=== PATIENT | male | born 1980 | race Caucasian/White ===

== ENCOUNTER 2018-01-22 07:04 | Observation (INO) | payer OTHER ==
[~2018-01-22] VITALS: Ht 177.8 cm; Wt 85.0 kg
[~2018-01-22 07:04] MED LIST: PERC5TAB12 PO; TAMS0.4C67 PO; ZOFR4TAB3 SL
[2018-01-22 07:19] VITALS: BP 164/109; PULSE 100; RESP 20; TEMP 98.6; O2SAT 98
[2018-01-22] MEDS ORDERED: SODIUM CHLOR 0.9% 1000 ML INJ 1,000 ML IV SCH (07:42)
[2018-01-22] MEDS ORDERED: ONDANSETRON ODT 4 MG TAB PO ONE (07:45)
[2018-01-22] MEDS ORDERED: SODIUM CHLORIDE 0.9% FLUSH 10 ML FLUSH IV FLUSH PRN (07:45)
[2018-01-22] MEDS ORDERED: KETOROLAC TROMETHAMINE 30 MG/ML (IVP) VIAL IV PUSH ONE (07:45)
[2018-01-22] MEDS ORDERED: MORPHINE SULFATE 4 MG/ML INJ IV PUSH ONE (07:45)
[2018-01-22 08:03] VITALS: RESP 18; O2SAT 98
[2018-01-22 08:21] LABS: AUTOMATED NEUTROPHIL # 9.9 TH/MM3 (1.8-7.7); BASOPHIL % 0.2 % (0.0-2.0); EOSINOPHIL % 0.3 % (0.0-4.0); HEMATOCRIT 46.9 % (39.0-51.0); HEMOGLOBIN 15.7 GM/DL (13.0-17.0); LYMPH % 14.9 % (9.0-44.0); LYMPHOCYTE # 1.9 TH/MM3 (1.0-4.8); MEAN CORPUSCULAR HEMOGLOBIN 28.4 PG (27.0-34.0); MEAN CORPUSCULAR HGB CONC 33.4 % (32.0-36.0); MEAN PLATELET VOLUME 8.8 FL (7.0-11.0); MONO % 6.8 % (0.0-8.0); MONOCYTE # 0.9 TH/MM3 (0-0.9); NEUT % 77.8 % (16.0-70.0); PLATELET COUNT 290 TH/MM3 (150-450); RED BLOOD COUNT 5.52 MIL/MM3 (4.50-5.90); RED CELL DISTRIBUTION WIDTH 13.8 % (11.6-17.2); WHITE BLOOD COUNT 12.8 TH/MM3 (4.0-11.0)
[2018-01-22 08:38] LABS: BICARBONATE 24.5 MEQ/L (21.0-32.0); CALCIUM 9.6 MG/DL (8.5-10.1); CREATININE 2.01 MG/DL (0.60-1.30)
[2018-01-22 08:45] LABS: BACTERIA, URINE OCC /hpf; BILIRUBIN, URINE NEG (NEG); BLOOD, URINE MOD (NEG); GLUCOSE,URINE NEG (NEG); KETONE, URINE NEG (NEG); MUCUS URINE FEW /lpf (OCC); NITRITE,URINE NEG (NEG); PH, URINE 6.5 (5.0-8.5); SQUAMOUS EPITHELIAL CELL URINE <1 /hpf (0-5); URINE COLOR YELLOW (YELLW/STRAW); URINE LEUKOCYTE ESTERASE NEG (NEG)
--- NOTE | 2018-01-22 09:00 | PD ---
HPI Chief Complaint: Flank/Kidney Pain Time Seen by Provider: 07:36 Travel History International Travel<30 days: No Contact w/Intl Traveler<30days: No Traveled to known affect area: No History of Present Illness HPI 37 years old male complains of left flank pain left upper quadrant abdominal pain. Patient states that the pain started yesterday early in the morning. Patient states the pain is severe pain sharp pain started on the left flank area with radiation to left upper abdomen. Patient denies any fever chills. Patient complained of nausea vomiting with the pain. Patient complained of dysuria also. Recent history kidney stone in the past. Patient was seen at [facility] urgent [facility] yesterday. Patient had kidney ultrasound done which shows 5 mm stone. Patient was given IM injection of pain medication and discharged home with prescription for hydrocodone, Flomax and Zofran. Patient states that he is unable to keep the hydrocodone down because of the pain and nausea vomiting. On a scale of 1-10 the pain is a 10. PFSH Past Medical History Hypertension: Yes Kidney Stones: Yes (multiple in past) Immunizations Current: Yes Influenza Vaccination: No ?: Not Past Surgical History Genitourinary Surgery: Yes (stent placed for kidney stone, removed a few years ago) Social History Alcohol Use: Yes (occasional social drinking) Tobacco Use: Yes (1 PPD) Substance Use: Yes (THC on occasion) Allergies-Medications (Allergen,Severity, Reaction): Coded Allergies: No Known Allergies (Verified Allergy, Unknown, 01/22/18) Reported Meds & Prescriptions Reported Meds & Active Scripts Active Zofran ODT (Ondansetron HCl) 4 Mg Tab 4 Mg SL Q6H PRN Flomax (Tamsulosin HCl) 0.4 Mg Cap 0.4 Mg PO DAILY 14 Days Percocet 5-325 mg (Oxycodone/Acetaminophen) 1 Tab 1 Tab PO Q6H PRN Review of Systems General / Constitutional: No: Fever Eyes: No: Visual changes HENT: No: Headaches Cardiovascular: No: Chest Pain or Discomfort Respiratory: No: Shortness of Breath Gastrointestinal: Positive: Nausea, Vomiting, Abdominal Pain Genitourinary: No: Dysuria Musculoskeletal: No: Pain Skin: No Rash Neurologic: No: Weakness Psychiatric: No: Depression Endocrine: No: Polydipsia Hematologic/Lymphatic: No: Easy Bruising Physical Exam Narrative GENERAL: Well-nourished, well-developed patient. SKIN: Focused skin assessment warm/dry. HEAD: Normocephalic. EYES: No scleral icterus. No injection or drainage. NECK: Supple, trachea midline. No JVD or lymphadenopathy. CARDIOVASCULAR: Regular rate and rhythm without murmurs, gallops, or rubs. RESPIRATORY: Breath sounds equal bilaterally. No accessory muscle use. GASTROINTESTINAL: Abdomen soft, nondistended. Patient has moderate tenderness on palpation left upper quadrant of the abdomen. No rebound tenderness. No mass. MUSCULOSKELETAL: No cyanosis, or edema. BACK: Moderate tenderness on palpation left flank area. Neurologic exam normal. Data Data Last Documented VS Vital Signs Date Time Temp Pulse Resp B/P (MAP) Pulse Ox O2 Delivery O2 Flow Rate FiO2 01/22/18 08:03 18 98 Room Air 01/22/18 07:19 98.6 100 164/109 (127) Orders Orders Basic Metabolic Panel (Bmp) (01/22/18 07:42) Complete Blood Count With Diff (01/22/18 07:42) Urinalysis - C+S If Indicated (01/22/18 07:42) Ct Abd/Pel W/O Iv Contrast (01/22/18 07:42) Iv Access Insert/Monitor (01/22/18 07:42) Ecg Monitoring (01/22/18 07:42) Oximetry (01/22/18 07:42) Sodium Chlor 0.9% 1000 Ml Inj (Ns 1000 M (01/22/18 07:42) Sodium Chloride 0.9% Flush (Ns Flush) (01/22/18 07:45) Ketorolac Inj (Toradol Inj) (01/22/18 07:45) Morphine Inj (Morphine Inj) (01/22/18 07:45) Ondansetron Odt (Zofran Odt) (01/22/18 07:45) Place In Observation (01/22/18 ) Sodium Chlor 0.9% 1000 Ml Inj (Ns 1000 M (01/22/18 10:45) Vital Signs (Adult) KOJO.Q4H (01/22/18 10:43) Activity Oob Ad Alejandrina (01/22/18 10:43) Basic Metabolic Panel (Bmp) (01/23/18 06:00) Morphine Inj (Morphine Inj) (01/22/18 10:45) Morphine Inj (Morphine Inj) (01/22/18 10:45) Diet Npo Except Meds (01/22/18 Lunch) Consult Urology (01/22/18 ) Tamsulosin (Flomax) (01/22/18 10:45) Tamsulosin (Flomax) (01/23/18 09:00) Ondansetron Odt (Zofran Odt) (01/22/18 10:45) Admit Order (Ed Use Only) (01/22/18 11:28) Labs Laboratory Tests Test 01/22/18 08:03 01/22/18 08:20 White Blood Count 12.8 TH/MM3 Red Blood Count 5.52 MIL/MM3 Hemoglobin 15.7 GM/DL Hematocrit 46.9 % Mean Corpuscular Volume 85.0 FL Mean Corpuscular Hemoglobin 28.4 PG Mean Corpuscular Hemoglobin Concent 33.4 % Red Cell Distribution Width 13.8 % Platelet Count 290 TH/MM3 Mean Platelet Volume 8.8 FL Neutrophils (%) (Auto) 77.8 % Lymphocytes (%) (Auto) 14.9 % Monocytes (%) (Auto) 6.8 % Eosinophils (%) (Auto) 0.3 % Basophils (%) (Auto) 0.2 % Neutrophils # (Auto) 9.9 TH/MM3 Lymphocytes # (Auto) 1.9 TH/MM3 Monocytes # (Auto) 0.9 TH/MM3 Eosinophils # (Auto) 0.0 TH/MM3 Basophils # (Auto) 0.0 TH/MM3 CBC Comment DIFF FINAL Differential Comment Blood Urea Nitrogen 20 MG/DL Creatinine 2.01 MG/DL Random Glucose 115 MG/DL Calcium Level 9.6 MG/DL Sodium Level 139 MEQ/L Potassium Level 3.8 MEQ/L Chloride Level 105 MEQ/L Carbon Dioxide Level 24.5 MEQ/L Anion Gap 10 MEQ/L Estimat Glomerular Filtration Rate 38 ML/MIN Urine Color YELLOW Urine Turbidity CLEAR Urine pH 6.5 Urine Specific [place] 1.029 Urine Protein 30 mg/dL Urine Glucose (UA) NEG mg/dL Urine Ketones NEG mg/dL Urine Occult Blood MOD Urine Nitrite NEG Urine Bilirubin NEG Urine Urobilinogen LESS THAN 2.0 MG/DL Urine Leukocyte Esterase NEG Urine RBC 28 /hpf Urine WBC 1 /hpf Urine Squamous Epithelial Cells <1 /hpf Urine Bacteria OCC /hpf Urine Mucus FEW /lpf Microscopic Urinalysis Comment CULT NOT INDICATED MDM Medical Decision Making Medical Screen Exam Complete: Yes Emergency Medical Condition: Yes Interpretation(s) Last Impressions Abdomen/Pelvis CT 01/22/18 0742 Signed Impressions: CONCLUSION: 1. 5 mm obstructing calculus in the left ureteropelvic junction causing mild-t o-moderate hydronephrosis. 2. Nonobstructing calculi in the right kidney without evidence of hydronephros is. 3. Otherwise unremarkable exam. 10:18 AM. CBC WBC 12.8. 77 neutrophil. BUN 20. Creatinine 2.01. GFR 38. Differential Diagnosis Differential diagnosis including nephrolithiasis, pyelonephritis, colitis, musculoskeletal. Narrative Course 37 years old male with left flank pain and left upper quadrant abdominal pain. History of kidney stone. Outpatient ultrasound yesterday showed 5 mm left- sided stone. Normal saline solution 1 L IV bolus. Normal sensory morphine 2 mg IV. Zofran 4 mg ODT. Toradol 30 mg IV. Diagnosis Primary Impression: Ureterolithiasis Additional Impressions: Nephropathy, obstructive Intractable pain Abdoulaye Boswell MD Jan 22, 2018 09:00
--- NOTE | 2018-01-22 09:39 | RADRPT ---
EXAM DATE: 01/22/2018 8:44 AM EDT AGE/SEX: 37 years / Male INDICATIONS: Left flank pain, 5mm stone found on U/S yesterday at urgent care. CLINICAL DATA: This is the patient's initial encounter. Patient reports that signs and symptoms have been present for 1 day and indicates a pain score of 5/10. MEDICAL/SURGICAL HISTORY: Hypertension. Renal calculi. . prior ureteral stent RADIATION DOSE: 12.56 CTDI (mGy) COMPARISON: [facility] [place], CT ABDOMEN & PELVIS W/O CONTRAST, 02/07/2016. . TECHNIQUE: Multiple contiguous axial images were obtained through the abdomen. Images were obtained using multiple row detector helical technique. Using dose reduction techniques, radiation dose was ke pt as low as reasonably achievable to obtain optimal diagnostic quality images. FINDINGS: Lower Lungs: The visualized lower lungs are clear. Liver: The liver has a homogeneous density without space-occupying lesion. There is no dilation of th e biliary tree. Spleen: Homogeneous density without enlargement. Pancreas: Unremarkable without mass or calcification. Kidneys: Mild to moderate hydronephrosis is identified in the left kidney. There is a 5 mm calcified stone in the left ureteropelvic junction. There is no evidence of significant hydroureter distal to this. The right kidney contains small nonobstructing calculi but otherwise is unremarkable. Adrenal Glands: Unremarkable. Aorta: The aorta and proximal iliac vessels are grossly unremarkable without aneurysmal dilation. Bowel/Mesentery: The bowel loops are grossly unremarkable. The cecum and sigmoid colon have a normal configuration. Abdominal Wall: Intact. Retroperitoneum: No evidence of adenopathy in the retrocrural, para-aortic, or deep pelvic regions. Bladder: Contours are smooth. Reproductive Organs: No abnormal masses or calcifications seen. Inguinal: The inguinal region is unremarkable without evidence of adenopathy. Bony Structures: Unremarkable. CONCLUSION: 1. 5 mm obstructing calculus in the left ureteropelvic junction causing [id number] hydronephro sis. 2. Nonobstructing calculi in the right kidney without evidence of hydronephrosis. 3. Otherwise unremarkable exam. Electronically signed by: García Gaspar MD 01/22/2018 9:37 AM EDT
[2018-01-22] MEDS ORDERED: TAMSULOSIN HCL 0.4 MG CAP PO ONE (10:45)
[2018-01-22] MEDS ORDERED: ONDANSETRON ODT 4 MG TAB PO PRN (10:45)
[2018-01-22] MEDS ORDERED: MORPHINE SULFATE 4 MG/ML INJ IV PUSH PRN (10:45)
[2018-01-22] MEDS: SODIUM CHLOR 0.9% 1000 ML INJ 1,000 ML IV SCH ×2 (11:22→18:45)
[2018-01-22] MEDS: MORPHINE SULFATE 4 MG/ML INJ IV PUSH PRN (11:22)
--- NOTE | 2018-01-22 12:54 | HHI.HP ---
HPI Service [facility] Hospitalists Primary Care Physician Vida Quarles MD Admission Diagnosis Ureterolithiasis. Intractable pain. Acute kidney injury. Chief Complaint: Left flank pain, N/V Travel History International Travel<30 Days: No Contact w/Intl Traveler <30 Da: No Traveled to Known Affected Are: No History of Present Illness Mr García is a 37 y/o WM with hx of nephrolithiasis, first one occurred at age 19. He states that he has had about a dozen kidney stones per the pt. He states that has had a stent placed and lithotripsy in the past with Dr. Rivera. Pt reports that he was woken up from sleep on Friday night with left flank pain which he states is the same pain he has had in the past with his kidney stones. He got in a hot bath which usually helps but that did not help this time. The pain continued for the last two days, mainly in the left flank with some radiation into the testicle. He was seen at [facility] workforce wellness yesterday and had an ultrasound done which noted a 5mm obstructing kidney stone. He was given [place] 5/325 but has been unable to keep any medications down. He states that he hasn't eating or had much of anything to drink in the last 2 days. He reported to the ED on 01/22 due to the pain and being unable to keep any fluids down. Pts labs at admission noted Cr 2.01, BUN 20, GFR 38, WBC count 12.8. Pt had a CT Abd/pelvis in the ED which noted 5 mm obstructing calculus in the left ureteropelvic junction causing [id number] hydronephrosis and nonobstructing calculi in the right kidney without evidence of hydronephrosis. Review of Systems Constitutional: DENIES: Fever, Chills Respiratory: DENIES: Cough, Shortness of breath Cardiovascular: DENIES: Chest pain, Lower Extremity Edema Gastrointestinal: COMPLAINS OF: Abdominal pain, Nausea, Vomiting, DENIES: Constipation, Diarrhea Genitourinary: COMPLAINS OF: Hematuria, DENIES: Urgency, Dysuria Integumentary: DENIES: Rash Neurologic: DENIES: Headache Psychiatric: DENIES: Confusion Past Family Social History Past Medical History Nephrolithiasis Elevated BP occasionally Past Surgical History Cystoscopy and lithotripsy Nevus removed from left arm with skin graft at 3 years old Reported Medications Zofran ODT (Ondansetron HCl) 4 Mg Tab 4 Mg SL Q6H PRN Flomax (Tamsulosin HCl) 0.4 Mg Cap 0.4 Mg PO DAILY 14 Days Percocet 5-325 mg (Oxycodone/Acetaminophen) 1 Tab 1 Tab PO Q6H PRN Allergies: Coded Allergies: No Known Allergies (Verified Allergy, Unknown, 01/22/18) Family History Noncontributory Social History Occasional alcohol use, 2-3 mixed drinks per week Smokes 1ppd x 15 years Denies any illicit drug use Physical Exam Vital Signs Vital Signs Date Time Temp Pulse Resp B/P (MAP) Pulse Ox O2 Delivery O2 Flow Rate FiO2 01/22/18 08:03 18 98 Room Air 01/22/18 07:27 18 01/22/18 07:19 98.6 100 20 164/109 (127) 98 Physical Exam GENERAL: This is a well-nourished, well-developed patient, in no apparent distress. SKIN: No rashes, ecchymoses or lesions. Cool and dry. HEENT: Atraumatic. Normocephalic. No temporal or scalp tenderness. No scleral icterus. Airway patent. NECK: Trachea midline, supple, nontender CARDIO: Regular. RESP: CTA bilaterally. No wheezes, rales, or rhonchi. ABD: +BS, soft, nondistended, left flank pain and left CVA tenderness. EXT: Extremities without clubbing, cyanosis, or edema. NEURO: Awake and alert. Motor and sensory grossly within normal limits. Normal speech. Laboratory Laboratory Tests Test 01/22/18 08:03 01/22/18 08:20 White Blood Count 12.8 Red Blood Count 5.52 Hemoglobin 15.7 Hematocrit 46.9 Mean Corpuscular Volume 85.0 Mean Corpuscular Hemoglobin 28.4 Mean Corpuscular Hemoglobin Concent 33.4 Red Cell Distribution Width 13.8 Platelet Count 290 Mean Platelet Volume 8.8 Neutrophils (%) (Auto) 77.8 Lymphocytes (%) (Auto) 14.9 Monocytes (%) (Auto) 6.8 Eosinophils (%) (Auto) 0.3 Basophils (%) (Auto) 0.2 Neutrophils # (Auto) 9.9 Lymphocytes # (Auto) 1.9 Monocytes # (Auto) 0.9 Eosinophils # (Auto) 0.0 Basophils # (Auto) 0.0 CBC Comment DIFF FINAL Differential Comment Blood Urea Nitrogen 20 Creatinine 2.01 Random Glucose 115 Calcium Level 9.6 Sodium Level 139 Potassium Level 3.8 Chloride Level 105 Carbon Dioxide Level 24.5 Anion Gap 10 Estimat Glomerular Filtration Rate 38 Urine Color YELLOW Urine Turbidity CLEAR Urine pH 6.5 Urine Specific [place] 1.029 Urine Protein 30 Urine Glucose (UA) NEG Urine Ketones NEG Urine Occult Blood MOD Urine Nitrite NEG Urine Bilirubin NEG Urine Urobilinogen LESS THAN 2.0 Urine Leukocyte Esterase NEG Urine RBC 28 Urine WBC 1 Urine Squamous Epithelial Cells <1 Urine Bacteria OCC Urine Mucus FEW Microscopic Urinalysis Comment CULT NOT INDICATED Result Diagram: 01/22/18 0803 01/22/18 0803 Imaging Last Impressions Abdomen/Pelvis CT 01/22/18 0742 Signed Impressions: CONCLUSION: 1. 5 mm obstructing calculus in the left ureteropelvic junction causing mild-t o-moderate hydronephrosis. 2. Nonobstructing calculi in the right kidney without evidence of hydronephros is. 3. Otherwise unremarkable exam. Caprini VTE Risk Assessment Caprini VTE Risk Assessment: No/Low Risk (score <= 1) Caprini Risk Assessment Model Point Value = 1 Point Value = 2 Point Value = 3 Point Value = 5 Age 41-60 Minor surgery BMI > 25 kg/m2 Swollen legs Varicose veins or History of unexplained or recurrent spontaneous Oral contraceptives or hormone replacement Sepsis (< 1 month) Serious lung disease, including pneumonia (< 1 month) Abnormal pulmonary function Acute myocardial infarction Congestive heart failure (< 1 month) History of inflammatory bowel disease Medical patient at bed rest Age 61-74 Arthroscopic surgery Major open surgery (> 45 min) Laparoscopic surgery (> 45 min) Malignancy Confined to bed (> 72 hours) Immobilizing plaster cast Central venous access Age >= 75 History of VTE Family history of VTE Factor V Leiden Prothrombin [id number] Lupus anticoagulant Anticardiolipin antibodies Elevated serum homocysteine Heparin-induced thrombocytopenia Other congenital or acquired thrombophilia Stroke (< 1 month) Elective arthroplasty Hip, pelvis, or leg fracture Acute spinal cord injury (< 1 month) Prophylaxis Regimen Total Risk Factor Score Risk Level Prophylaxis Regimen 0-1 Low Early ambulation 2 Moderate Order ONE of the following: *Sequential Compression Device (SCD) *Heparin 5000 units SQ BID 3-4 Higher Order ONE of the following medications: *Heparin 5000 units SQ TID *Enoxaparin/Lovenox 40 mg SQ daily (WT < 150 kg, CrCl > 30 mL/min) *Enoxaparin/Lovenox 30 mg SQ daily (WT < 150 kg, CrCl > 10-29 mL/min) *Enoxaparin/Lovenox 30 mg SQ BID (WT < 150 kg, CrCl > 30 mL/min) AND/OR *Sequential Compression Device (SCD) 5 or more Highest Order ONE of the following medications: *Heparin 5000 units SQ TID (Preferred with Epidurals) *Enoxaparin/Lovenox 40 mg SQ daily (WT < 150 kg, CrCl > 30 mL/min) *Enoxaparin/Lovenox 30 mg SQ daily (WT < 150 kg, CrCl > 10-29 mL/min) *Enoxaparin/Lovenox 30 mg SQ BID (WT < 150 kg, CrCl > 30 mL/min) AND *Sequential Compression Device (SCD) Assessment and Plan Problem List: (1) Nephropathy, obstructive ICD Codes: N13.8 - Other obstructive and reflux uropathy Status: Acute Plan: Nephrolithiasis, obstructive Mild to moderate hydronephrosis Intractable abdominal/flank pain - Pt is a 37 y/o WM with hx of nephrolithiasis and has had a stent placed and lithotripsy in the past with Dr. Rivera. - Pt reports that he was woken up from sleep on Friday night with left flank pain which he states is the same pain he has had in the past with his kidney stones. - He was seen at [facility] workforce wellness yesterday and had an ultrasound done which noted a nonobstructing kidney stone in the lower pole calyx of the left kidney with mild hydronephrosis of the left kidney. He was given [place] 5/325 but has been unable to keep any medications down. He states that he hasn't eating or had much of anything to drink in the last 2 days. - He reported to the ED on 01/22 due to the pain and being unable to keep any fluids down. - Labs at admission noted Cr 2.01, BUN 20, GFR 38, WBC count 12.8. - CT Abd/pelvis in the ED which noted 5 mm obstructing calculus in the left ureteropelvic junction causing [id number] hydronephrosis and nonobstructing calculi in the right kidney without evidence of hydronephrosis. - IVF with NS @ 125mL/hr - Pain control PRN - Flomax 0.4mg po daily - Consult Urology - Clear liquid diet for now and NPO after MN MICHAEL Nausea/vomiting Dehydration - Likely related to dehydration/poor po intake and ureteral obstruction - Give IVF - Repeat labs in AM - Antiemetics PRN (2) Ureterolithiasis ICD Codes: N20.1 - Calculus of ureter Status: Acute (3) MICHAEL (acute kidney injury) ICD Codes: N17.9 - Acute kidney failure, unspecified (4) Nausea & vomiting ICD Codes: R11.2 - Nausea with vomiting, unspecified (5) Intractable pain ICD Codes: R52 - Pain, unspecified Status: Acute Assessment and Plan Patient examined. Assessment and plan formulated with Laverne Chavez PA-C. I agree with the above. left ureter stone. 5mm with hydro. ivf, iv pain meds. flomax urology following. if not passed by tomorrow then cysto/stent and dc Laverne Chavez Jan 22, 2018 12:54 Bunny Johnston MD Jan 22, 2018 14:54
--- NOTE | 2018-01-22 14:15 | PD.CONS ---
HPI Service Urology Consult Requested By Dr. Burnham Reason for Consult Obstructing left ureteral calculus Primary Care Physician Vida Quarles MD Diagnosis: (1) Nephropathy, obstructive ICD Code: N13.8 - Other obstructive and reflux uropathy (2) Ureterolithiasis ICD Code: N20.1 - Calculus of ureter (3) MICHAEL (acute kidney injury) ICD Code: N17.9 - Acute kidney failure, unspecified (4) Nausea & vomiting ICD Code: R11.2 - Nausea with vomiting, unspecified (5) Intractable pain ICD Code: R52 - Pain, unspecified History of Present Illness 37-year-old gentleman with history recurrent nephrolithiasis who presented to the emergency room with a 2 day history of left flank pain. Patient was initially evaluated at a local urgent care center and a ultrasound study was performed which demonstrated left hydronephrosis secondary to an obstructing proximal ureteral stone. Patient was treated and released and had worsening of his symptoms with significant vomiting. He reports he was unable to keep the pain medication down and thus presented to [place] emergency room for further management. A CT scan stone protocol was ordered and demonstrated a 5 mm obstructing left proximal ureteral stone also noted were a couple of tiny nonobstructing right renal calculi. Upon further questioning the patient reports she has had recurrent nephrolithiasis since the age of 19 and typically passes them spontaneously. Greater than 10 years ago he had a stone that would not pass and ended up with the stent which was left indwelling for approximately 1 year. At the time of consultation the patient's pain was adequately controlled. Review of Systems Constitutional: DENIES: Fever, Chills Gastrointestinal: COMPLAINS OF: Nausea, Vomiting Genitourinary: DENIES: Urgency, Hematuria Musculoskeletal: COMPLAINS OF: Back pain (Left flank) Except as stated in HPI: all other systems reviewed are Neg Past Family Social History Past Medical History Recurrent nephrolithiasis Past Surgical History Status post shockwave lithotripsy in the past Reported Medications Refer to EMR Allergies: Coded Allergies: No Known Allergies (Verified Allergy, Unknown, 01/22/18) Active Ordered Medications Refer to EMR Family History Reviewed and noncontributory Social History Smoker 1 pack per day 15 years Occasional alcohol use Denies history intravenous drug abuse Physical Exam Vital Signs Date Time Temp Pulse Resp B/P (MAP) Pulse Ox O2 Delivery O2 Flow Rate FiO2 01/22/18 08:03 18 98 Room Air 01/22/18 07:27 18 01/22/18 07:19 98.6 100 20 164/109 (127) 98 Physical Exam GENERAL: This is a well-nourished, well-developed patient, in no apparent distress. SKIN: No rashes, ecchymoses or lesions. Cool and dry. HEAD: Atraumatic. Normocephalic. No temporal or scalp tenderness. EYES: Pupils equal round and reactive. Extraocular motions intact. No scleral icterus. No injection or drainage. ENT: Nose without bleeding, purulent drainage or septal hematoma. Throat without erythema, tonsillar hypertrophy or exudate. Uvula midline. Airway patent. NECK: Trachea midline. No JVD or lymphadenopathy. Supple, nontender, no meningeal signs. CARDIOVASCULAR: Regular rate and rhythm without murmurs, gallops, or rubs. RESPIRATORY: Clear to auscultation. Breath sounds equal bilaterally. No wheezes , rales, or rhonchi. GASTROINTESTINAL: Abdomen soft, non-tender, nondistended. No hepato-splenomegaly , or palpable masses. No guarding. GENITOURINARY: No CVA tenderness, bladder not distended MUSCULOSKELETAL: Extremities without clubbing, cyanosis, or edema. No joint tenderness, effusion, or edema noted. No calf tenderness. Negative Homans sign bilaterally. NEUROLOGICAL: Awake and alert. Cranial nerves II through XII intact. Motor and sensory grossly within normal limits. Five out of 5 muscle strength in all muscle groups. Normal speech. Lab results reviewed: Yes Laboratory Tests Test 01/22/18 08:03 01/22/18 08:20 White Blood Count 12.8 Red Blood Count 5.52 Hemoglobin 15.7 Hematocrit 46.9 Mean Corpuscular Volume 85.0 Mean Corpuscular Hemoglobin 28.4 Mean Corpuscular Hemoglobin Concent 33.4 Red Cell Distribution Width 13.8 Platelet Count 290 Mean Platelet Volume 8.8 Neutrophils (%) (Auto) 77.8 Lymphocytes (%) (Auto) 14.9 Monocytes (%) (Auto) 6.8 Eosinophils (%) (Auto) 0.3 Basophils (%) (Auto) 0.2 Neutrophils # (Auto) 9.9 Lymphocytes # (Auto) 1.9 Monocytes # (Auto) 0.9 Eosinophils # (Auto) 0.0 Basophils # (Auto) 0.0 CBC Comment DIFF FINAL Differential Comment Blood Urea Nitrogen 20 Creatinine 2.01 Random Glucose 115 Calcium Level 9.6 Sodium Level 139 Potassium Level 3.8 Chloride Level 105 Carbon Dioxide Level 24.5 Anion Gap 10 Estimat Glomerular Filtration Rate 38 Urine Color YELLOW Urine Turbidity CLEAR Urine pH 6.5 Urine Specific [place] 1.029 Urine Protein 30 Urine Glucose (UA) NEG Urine Ketones NEG Urine Occult Blood MOD Urine Nitrite NEG Urine Bilirubin NEG Urine Urobilinogen LESS THAN 2.0 Urine Leukocyte Esterase NEG Urine RBC 28 Urine WBC 1 Urine Squamous Epithelial Cells <1 Urine Bacteria OCC Urine Mucus FEW Microscopic Urinalysis Comment CULT NOT INDICATED Result Diagram: 01/22/18 0803 01/22/18 0803 Personally reviewed images: Yes Imaging Last Impressions Abdomen/Pelvis CT 01/22/18 0742 Signed Impressions: CONCLUSION: 1. 5 mm obstructing calculus in the left ureteropelvic junction causing mild-t o-moderate hydronephrosis. 2. Nonobstructing calculi in the right kidney without evidence of hydronephros is. 3. Otherwise unremarkable exam. Assessment and Plan Assessment and Plan Urologic impression: 1. Obstructing left proximal ureteral calculus causing left hydronephrosis 2. Nonobstructing right renal calculi Plan: 1. Continue with analgesic medication and anti-nausea medication 2. Flomax 0.4 mg by mouth daily 3. Strain all urine 4. Repeat a KUB tomorrow morning 5. Tentatively schedule the patient for cystoscopy, left retrograde pyelogram and left stent placement for tomorrow if there is no significant migration of the ureteral calculus. Nathan Joy MD Jan 22, 2018 14:15
[2018-01-22 17:55] VITALS: BP 127/86; PULSE 68; RESP 15; TEMP 98.7; O2SAT 96
[2018-01-22 19:54] VITALS: BP 132/84; PULSE 65; RESP 20; TEMP 98.3; O2SAT 98
[2018-01-22 22:58] VITALS: BP 137/78; PULSE 60; RESP 20; TEMP 98; O2SAT 95
[2018-01-22] MEDS ORDERED: ACETAMINOPHEN 325 MG TAB PO PRN (23:45)
[2018-01-23] MEDS: SODIUM CHLOR 0.9% 1000 ML INJ 1,000 ML IV SCH ×2 (02:45→08:42)
[2018-01-23 03:54] VITALS: BP 116/78; PULSE 57; RESP 20; TEMP 98; O2SAT 96
--- NOTE | 2018-01-23 05:45 | RADRPT ---
EXAM DATE: 01/23/2018 5:14 AM EDT AGE/SEX: 37 years / Male INDICATIONS: Calculi. Check migration of left ureteral calculus. CLINICAL DATA: This is the patient's initial encounter. Patient reports that signs and symptoms have been present for 1 day and indicates a pain score of 0/10. MEDICAL/SURGICAL HISTORY: . Hypertension. Renal calculi. . prior ureteral [place] [facility] [place], [place]22/2018. . FINDINGS: The left ureteral stone is difficult to clearly identified. What may be the left ureteral stone is s een adjacent to the medial aspect of the left kidney. This projects over the transverse colon. This m easures 4 mm. There does appear to be a faint tiny stone seen over the superior aspect of the right k idney. The abdominal bowel gas pattern is normal. No abnormal masses, , or organomegaly is seen. Th e osseous structures are unremarkable. CONCLUSION: The left ureteral stone appears to be projecting medial to the mid left kidney likely in the UPJ kevin on. There is a faint calcification projecting over the superior aspect of the right kidney. Electronically signed by: Tarik Davis MD 01/23/2018 5:43 AM EDT
[2018-01-23 08:28] VITALS: BP 133/84; PULSE 60; RESP 20; TEMP 98.2; O2SAT 96
[2018-01-23] MEDS ORDERED: TAMSULOSIN HCL 0.4 MG CAP PO SCH (09:00)
[2018-01-23] MEDS ORDERED: ACETAMINOPHEN/HYDROcodone 325 MG/7.5 MG TAB PO ONE (09:00)
--- NOTE | 2018-01-23 09:14 | HHI.PR ---
Subjective Remarks Pt reports that his flank pain is better controlled today. He feels the Flomax is helping Complains of neck pain and headache that Tylenol did not help with last night. He is planned for cysto today Objective Vitals Vital Signs Date Time Temp Pulse Resp B/P (MAP) Pulse Ox O2 Delivery O2 Flow Rate FiO2 01/23/18 08:28 98.2 60 20 133/84 (100) 96 01/23/18 03:54 98.0 57 20 116/78 (91) 96 01/23/18 00:58 18 01/22/18 22:58 98.0 60 20 137/78 (97) 95 01/22/18 19:54 98.3 65 20 132/84 (100) 98 01/22/18 17:55 98.7 68 15 127/86 (100) 96 Result Diagram: 01/22/18 0803 01/22/18 0803 Other Results Laboratory Tests Test 01/22/18 08:03 01/22/18 08:20 01/23/18 07:15 White Blood Count 12.8 TH/MM3 Red Blood Count 5.52 MIL/MM3 Hemoglobin 15.7 GM/DL Hematocrit 46.9 % Mean Corpuscular Volume 85.0 FL Mean Corpuscular Hemoglobin 28.4 PG Mean Corpuscular Hemoglobin Concent 33.4 % Red Cell Distribution Width 13.8 % Platelet Count 290 TH/MM3 Mean Platelet Volume 8.8 FL Neutrophils (%) (Auto) 77.8 % Lymphocytes (%) (Auto) 14.9 % Monocytes (%) (Auto) 6.8 % Eosinophils (%) (Auto) 0.3 % Basophils (%) (Auto) 0.2 % Neutrophils # (Auto) 9.9 TH/MM3 Lymphocytes # (Auto) 1.9 TH/MM3 Monocytes # (Auto) 0.9 TH/MM3 Eosinophils # (Auto) 0.0 TH/MM3 Basophils # (Auto) 0.0 TH/MM3 CBC Comment DIFF FINAL Differential Comment Blood Urea Nitrogen 20 MG/DL Creatinine 2.01 MG/DL Random Glucose 115 MG/DL Calcium Level 9.6 MG/DL Sodium Level 139 MEQ/L Potassium Level 3.8 MEQ/L Chloride Level 105 MEQ/L Carbon Dioxide Level 24.5 MEQ/L Anion Gap 10 MEQ/L Estimat Glomerular Filtration Rate 38 ML/MIN Urine Color YELLOW Urine Turbidity CLEAR Urine pH 6.5 Urine Specific [place] 1.029 Urine Protein 30 mg/dL Urine Glucose (UA) NEG mg/dL Urine Ketones NEG mg/dL Urine Occult Blood MOD Urine Nitrite NEG Urine Bilirubin NEG Urine Urobilinogen LESS THAN 2.0 MG/DL Urine Leukocyte Esterase NEG Urine RBC 28 /hpf Urine WBC 1 /hpf Urine Squamous Epithelial Cells <1 /hpf Urine Bacteria OCC /hpf Urine Mucus FEW /lpf Microscopic Urinalysis Comment CULT NOT INDICATED Imaging Last Impressions Abdomen X-Ray 01/23/18 0600 Signed Impressions: CONCLUSION: The left ureteral stone appears to be projecting medial to the mid left kidney likely in the UPJ region. There is a faint calcification projecting over the holloway perior aspect of the right kidney. Abdomen/Pelvis CT 01/22/18 0742 Signed Impressions: CONCLUSION: 1. 5 mm obstructing calculus in the left ureteropelvic junction causing mild-t o-moderate hydronephrosis. 2. Nonobstructing calculi in the right kidney without evidence of hydronephros is. 3. Otherwise unremarkable exam. Objective Remarks General: NAD, AAOx3 Chest: CTA Cardiac: Regular Abd: +BS, soft ND/NT Ext: No edema A/P Problem List: (1) Nephropathy, obstructive ICD Codes: N13.8 - Other obstructive and reflux uropathy Status: Acute Plan: Nephrolithiasis, obstructive Mild to moderate hydronephrosis Intractable abdominal/flank pain - Pt is a 37 y/o WM with hx of nephrolithiasis and has had a stent placed and lithotripsy in the past with Dr. Rivera. - Pt reports that he was woken up from sleep on Friday night with left flank pain which he states is the same pain he has had in the past with his kidney stones. - He was seen at [facility] yesterday and had an ultrasound done which noted a nonobstructing kidney stone in the lower pole calyx of the left kidney with mild hydronephrosis of the left kidney. He was given [place] 5/325 but has been unable to keep any medications down. He states that he hasn't eating or had much of anything to drink in the last 2 days. - He reported to the ED on 01/22 due to the pain and being unable to keep any fluids down. - Labs at admission noted Cr 2.01, BUN 20, GFR 38, WBC count 12.8. - CT Abd/pelvis in the ED which noted 5 mm obstructing calculus in the left ureteropelvic junction causing [id number] hydronephrosis and nonobstructing calculi in the right kidney without evidence of hydronephrosis. - IVF with NS @ 125mL/hr - Pain control PRN - Flomax 0.4mg po daily - Appreciate consult from Urology - KUB (01/23) --> left ureteral stone appears to be projecting medial to the mid left kidney likely in the UPJ region. There is a faint calcification projecting over the superior aspect of the right kidney. - Pt is NPO for cysto with stent placement for today - Anticipate d/c later this afternoon following procedure. MICHAEL Nausea/vomiting Dehydration - Likely related to dehydration/poor po intake and ureteral obstruction - Give IVF - Repeat labs are pending for this morning. - Antiemetics PRN (2) Ureterolithiasis ICD Codes: N20.1 - Calculus of ureter Status: Acute (3) MICHAEL (acute kidney injury) ICD Codes: N17.9 - Acute kidney failure, unspecified (4) Nausea & vomiting ICD Codes: R11.2 - Nausea with vomiting, unspecified (5) Intractable pain ICD Codes: R52 - Pain, unspecified Status: Acute Assessment and Plan Patient examined. Assessment and plan formulated with Laverne Chavez PA-C. I agree with the above. left ureter kidney stone. michael resolved. cysto/stent today dc today and f/u urology next week for lithotripsy. Laverne Chavez Jan 23, 2018 09:14 Bunny Johnston MD Jan 23, 2018 15:37
[2018-01-23] MEDS ORDERED: TAMS5CAP PO (09:17)
[2018-01-23 09:43] LABS: BICARBONATE 22.6 MEQ/L (21.0-32.0); CALCIUM 8.4 MG/DL (8.5-10.1); CREATININE 1.09 MG/DL (0.60-1.30)
[2018-01-23] MEDS ORDERED: DEXAMETHASONE SOD PHOS 4 MG/ML VIAL IV ONE (12:00)
[2018-01-23] MEDS ORDERED: PROPOFOL 200 MG/20 ML AMP IV ONE (12:00)
[2018-01-23] MEDS ORDERED: ceFAZolin INJ 1,000 MG VIAL IV ONE (12:00)
[2018-01-23] MEDS ORDERED: LIDOCAINE HCL 1% PF 5 ML SYRINGE OTHER ONE (12:00)
[2018-01-23] MEDS ORDERED: ONDANSETRON HCL 4 MG/2 ML VIAL IV ONE (12:00)
[2018-01-23 12:12] VITALS: BP 133/80; PULSE 60; RESP 18; TEMP 98.2; O2SAT 96
[2018-01-23] MEDS ORDERED: DO NOT ADM ANY ANTICOAGULANT DRUGS PRN (14:14)
[2018-01-23] MEDS ORDERED: ceFAZolin INJ 1,000 MG VIAL ONE (14:16)
--- NOTE | 2018-01-23 14:36 | PD.OP ---
Operative Report Date of Surgery: Jan 23, 2018 Preoperative Diagnosis: (1) Ureteral calculus, left Postoperative Diagnosis: (1) Ureteral calculus, left Procedure: Cystoscopy, left retrograde pyelogram, left ureteral stone manipulation and placement of left ureteral stent Anesthesia: General Surgeon: Nathan Joy Nozzle Operator(s): None Operation and Findings: Indication for procedures: Case of a pleasant 37-year-old gentleman with a 5 mm obstructing left proximal ureteral calculus who presents today for left ureteral stent placement. Operative procedure in detail: Patient was brought to the operating room suite and placed supine on the OR table. He was then placed under general anesthesia. He was then repositioned in the dorsolithotomy position and prepped and draped in normal sterile fashion. After an appropriate timeout was undertaken I proceeded with cystoscopic evaluation utilizing the rigid cystoscope with the 20 Singaporean sheath and the 30 lens. The urethra was patent without stricture formation and the prostatic urethra was not obstructing. Further passive cystoscope within the urinary bladder revealed both right and left ureteral orifices to be in correct anatomic position. There was no drainage noted on the left and normal drainage on the right. A sensor 0.035 wire was then advanced up the left ureter and negotiated around the proximal stone and further advanced within the left renal pelvis. A 6 [place]an open-ended catheter was then advanced over this wire and the stone was gently manipulated into the left kidney. The wire was withdrawn and a left retrograde pyelogram study was performed to outline the collecting system. The guidewire was reintroduced through the open-ended catheter and the catheter was exchanged for a [place] 6 [place]an 24 cm double-J stent. The stent was placed on the both cystoscopic and fluoroscopic guidance without difficulty. Once the stent was in proper position, the trailing string was removed. A 16 Singaporean 10 cc Flaherty catheter was placed and connected to gravity drainage. The patient tolerated the procedures without complications and was transferred to the PACU in satisfactory condition. Patient was advised to contact my office to make arrangements for outpatient extracorporeal shockwave lithotripsy. Nathan Joy MD Jan 23, 2018 14:36
[2018-01-23] MEDS ORDERED: MIDAZOLAM HCL 2 MG/2 ML VIAL ONE (14:48)
[2018-01-23] MEDS ORDERED: *morphine SULFATE 4 MG/ML PERIprocedure ONLY ONE ×2 (14:50→15:09)
[2018-01-23] MEDS ORDERED: BELLADONNA ALKALOIDS/OPIUM 60 MG SUPP RECTAL ONE ×2 (14:57→15:00)
--- NOTE | 2018-01-23 15:08 | HHI.DCPOC ---
Discharge Care Plan Diagnosis: (1) Ureteral calculus, left (2) Ureterolithiasis (3) MICHAEL (acute kidney injury) (4) Nephropathy, obstructive (5) Nausea & vomiting (6) Intractable pain Goals to Promote Your Health * To prevent worsening of your condition and complications * To maintain your health at the optimal level Directions to Meet Your Goals Take your medications as prescribed Follow your dietary instruction Follow activity as directed Keep your appointments as scheduled Take your immunizations and boosters as scheduled If your symptoms worsen call your PCP, if no PCP go to Urgent Care Center or Emergency Room Smoking is Dangerous to Your Health. Avoid second hand smoke Call the 24-hour hour crisis hotline for domestic abuse at Laverne Chavez Jan 23, 2018 15:08
[2018-01-23] MEDS ORDERED: NORC5TAB PO (15:10)
[2018-01-23 16:52] VITALS: BP 140/82; PULSE 72; RESP 20; TEMP 98.2; O2SAT 98
[2018-01-23] MEDS: MORPHINE SULFATE 4 MG/ML INJ IV PUSH PRN (16:54)
== END 2018-01-23 17:42 | disposition home or self-care (01) ==
LOC: NEPC 07:04 → NEDA 11:30 → NEPHCDU 13:35
PROVIDERS: ADMIT Hospitalist; ATTEND Hospitalist
DX: N13.2 Hydronephrosis with renal and ureteral calculous obstruction (principal); Z87.442 Personal history of urinary calculi; I10 Essential (primary) hypertension; F17.210 Nicotine dependence, cigarettes, uncomplicated; F12.90 Cannabis use, unspecified, uncomplicated; Z79.899 Other long term (current) drug therapy; R11.2 Nausea with vomiting, unspecified
CPT/HCPCS: 00910; 52330; 52332; 74018; 74176; 74420; 80048; 81001; 85025; 96361; 96374; 96375; 96376; 99285; C1769; G0378; J0690; J1100; J1885; J2250; J2270; J2405; J3010; J7030

== ENCOUNTER → 2018-01-28 | Day surgery (SDC) | payer OTHER ==
[~2018-01-28] VITALS: Ht 177.8 cm; Wt 89.4 kg
[~2018-01-28] MED LIST changes: +CHLORHEXIDINE GLUCONATE 2 % 1 PACK (2 CLOTHS) TOPICAL PRN; +LACTATED RINGER'S 1000 ML IV PRN; +LIDOCAINE HCL 1% PF 5 ML SYRINGE OTHER ONE; +METOPROLOL TARTRATE 25 MG TAB PO PRN; +MIDAZOLAM HCL 2 MG/2 ML VIAL ONE; +MORPHINE SULFATE 4 MG/ML INJ IV PUSH PRN; +NORC5TAB PO; +ONDANSETRON HCL 4 MG/2 ML VIAL IV PUSH PRN; +ONDANSETRON ODT 4 MG TAB PO PRN; -PERC5TAB12 PO; +POVIDONE IODINE 5% (ANTISEPSIS KIT) 4 APPLICATIONS EACH NARE PRN; +PROPOFOL 200 MG/20 ML AMP IV ONE; +SODIUM CHLORID 0.9% 500 ML IV PRN; -TAMS0.4C67 PO; +TAMS5CAP PO; -ZOFR4TAB3 SL; +ceFAZolin 1,000 MG/NS 100 ML IV SCH; +oxyCODONE/ACETAMINOPHEN 5 MG/325 MG TAB ONE; +oxyCODONE/ACETAMINOPHEN 5 MG/325 MG TAB PO PRN
--- NOTE | 2018-01-28 14:11 | RADRPT ---
EXAM DATE: 01/28/2018 1:59 PM EDT AGE/SEX: 37 years / Male INDICATIONS: Pre op lithotripsy. CLINICAL DATA: This is the patient's initial encounter. Patient reports that signs and symptoms have been present for 1 day and indicates a pain score of 5/10. MEDICAL/SURGICAL HISTORY: . Hypertension. Renal calculi. . Ureteral stent. COMPARISON: [facility] [place]EL[place] W/O CONTRAST, 01/22/2018. . FINDINGS: The examination demonstrates a ureteral stent in place on the left. The stent appears well positione d. There is a single 4 mm stone seen adjacent to the proximal portion of the ureteral stent. There is a second faint The bowel gas pattern is within normal limits. The visualized osseous structures are intact. CONCLUSION: Ureteral stent in good position. 4 mm stone in the collecting system. No definite stones seen along the course of the ureter by KUB. Electronically signed by: Edi Morrison MD 01/28/2018 2:09 PM EDT
[2018-01-28 15:50] VITALS: BP 130/98; PULSE 78; RESP 16; TEMP 97.7; O2SAT 97
--- NOTE | 2018-01-28 15:54 | PD.OP ---
Operative Report Date of Surgery: Jan 28, 2018 Preoperative Diagnosis: Left renal calculus Postoperative Diagnosis: Same Procedure: Left extracoporeal shockwave lithotripsy [place] [facility] [place]: Esteban Tracey Cutting Tool Sharpener(s): None Resident Surgeon: None Operation and Findings: 37-year-old male with history of a 6 mm proximal left ureteral stone who underwent cystoscopy with left double-J stent insertion. Patient underwent a KUB today and the stone was located in the left kidney near the stent. Decision made for the patient to undergo left extracorporeal shockwave lithotripsy. Risk and benefits were discussed preoperatively the patient was willing to proceed. Patient brought the operating room and identified by myself as Harley García. He was placed on the operating table in the supine position and received preprocedure antibiotics. Under fluoroscopic imaging guidance the stone was visualized next to the left stent in the left kidney. S wall therapy commenced with the patient receiving a total of 2500 shocks with good fragmentation of the stone. He tolerated the procedure well and was awoken and transferred to the recovery room in stable condition. He will follow -up in 2 weeks to undergo KUB x-ray prior to his cystoscopy with stent removal in the office. Esteban Tracey DO Jan 28, 2018 15:54
== END | disposition home or self-care (01) ==
LOC: HSDC 11:43
PROVIDERS: ATTEND Urology
DX: N20.0 Calculus of kidney (principal); N13.8 Other obstructive and reflux uropathy; N17.9 Acute kidney failure, unspecified; R11.2 Nausea with vomiting, unspecified
CPT/HCPCS: 00872; 50590; 74018; J0690; J2250; J3010; J7120